=== PATIENT | female | born 1980 | race Caucasian/White ===

== ENCOUNTER 2017-01-15 20:25 | Emergency (ER) | payer OTHER ==
--- NOTE | ~2017-01-15 | CR206 ---
[facility] A Service of [facility] & [facility] RADIOLOGY TEXT RESULTS PATIENT: GULSHAN MELARA LOCATION: CFTX : 76 UNIT #: [id number] AGE: [address]: SHAJI LOZOYA APRN SEX: F ORDER DR: [id number] [facility] [address] [place], [place] [address] [id number] E MR#: [id number] Acc #: [id number] NAME: GULSHAN MELARA. : 1980 SEX: F STUDY DATE/TIME: 01/15/2017 20:54 UNIT: [facility] ROOM: STUDY DESCRIPTION: CR Pelvis 1 or 2 Views Attending Physician: Shaji Lozoya Aprn Ordering Physician: Shaji Lozoya Aprn Primary Care Physician: Hillary Ochoa M.D. MEDICAL IMAGING REPORT This report is preliminary unless electronic signature is present EXAM AP pelvis HISTORY Chronic low back pain, pelvic pain FINDINGS AP view of the pelvis demonstrates no fracture or deformity. Bone mineralization appears normal. Soft tissues in lower lumbar spine and SI joints appear normal. There are pelvic clips compatible with tubal ligation. IMPRESSION Normal AP pelvis. Dictated by... Daniel Antony M.D. THIS IS AN ELECTRONICALLY VERIFIED REPORT Daniel Antony M.D. at 01/16/2017 5:04 PM Oumar TD: 01/16/2017 08:28 JOB #: [id number] MEDICAL IMAGING REPORT COPY
--- NOTE | ~2017-01-15 | CR181 ---
[facility] A Service of [facility] & [facility] RADIOLOGY TEXT RESULTS PATIENT: GULSHAN MELARA LOCATION: CFTX : 76 UNIT #: [id number] AGE: [address]: SHAJI LOZOYA APRN SEX: F ORDER DR: [id number] [facility] [address] [place], [place] [address] [id number] E MR#: [id number] Acc #: [id number] NAME: GULSHAN MELARA. : 1980 SEX: F STUDY DATE/TIME: 01/15/2017 20:55 UNIT: [facility] ROOM: STUDY DESCRIPTION: CR Lumbar Spine 2 or 3 Views Attending Physician: Shaji Lozoya Aprn Ordering Physician: Shaji Lozoya Aprn Primary Care Physician: Hillary Ochoa M.D. MEDICAL IMAGING REPORT This report is preliminary unless electronic signature is present EXAM Lumbar spine 3 views HISTORY Chronic low back pain. No injury. FINDINGS 3 views lumbar spine demonstrate satisfactory lumbar alignment. Moderately severe disc space narrowing at L5-S1. No lumbar fracture or subluxation. Mild gaseous distension of the partly visualized colon could reflect mild colonic ileus. Surgical clips in the right upper quadrant. IMPRESSION 1. No acute findings in the lumbar spine. Moderately severe disc space narrowing at L5-S1. 2. Mild gaseous distension of the partly visualized colon suggesting mild colonic ileus. Dictated by... Rey Carney M.D. THIS IS AN ELECTRONICALLY VERIFIED REPORT Rey Carney M.D. at 01/16/2017 3:16 PM DFL/tianna TD: 01/16/2017 08:31 JOB #: [id number] MEDICAL IMAGING REPORT COPY
[~2017-01-15 20:25] MED LIST: LORTAB 10-3251 EACH PO; NEURONTIN800 MG PO; NO MEDICATIONS; PROTONIX PO; PROZAC40 MG PO
== END 2017-01-15 22:05 | disposition home or self-care (01) ==
LOC: CFTX 20:25
DX: M54.41 Lumbago with sciatica, right side (principal); Z86.73 Personal history of transient ischemic attack (TIA), and cerebral infarction without residual deficits; F32.9 Major depressive disorder, single episode, unspecified; F41.9 Anxiety disorder, unspecified; F17.210 Nicotine dependence, cigarettes, uncomplicated; Z90.49 Acquired absence of other specified parts of digestive tract
CPT/HCPCS: 72100; 72170; 84703; 96372; 99284; J1885

== ENCOUNTER 2017-02-07 21:47 | Emergency (ER) | payer OTHER ==
--- NOTE | ~2017-02-07 | EKG ---
PATIENT: GULSHAN MELARA UNIT #: [id number] Ventricular Rate: 48 BPM Atrial Rate: 48 BPM P-R Interval: 116 ms QRS Duration: 84 ms Q-T Interval: 466 ms QTC Calculation(Bezet): 416 ms P [place]: 32 degrees Calculated R [place]: 63 degrees Calculated T [place]: 66 degrees Diagnosis Line: Sinus bradycardia Diagnosis Line: Otherwise normal ECG Diagnosis Line: When compared with ECG of 02-AUG-2016 07:13, Diagnosis Line: Vent. rate has decreased BY 28 BPM Diagnosis Line: QT has shortened Diagnosis Line: Confirmed by RAMON PARIS MD ([id number]) on 02/09/2017 Diagnosis Line: 9:17:54 AM INTERPRETING MD: WELLINGTON OLIVEIRA
[2017-02-07 22:12] LABS: ARTERIAL BLD GAS O2 SATURATION 96.4 % (90.0-100.0); ARTERIAL BLOOD GAS CARBOXY HB 1.3 %sat (0.0-9.0); ARTERIAL BLOOD GAS HCO3 26.4 mmol/L; ARTERIAL BLOOD GAS MET HB 0.7 %sat (0.0-2.0); ARTERIAL BLOOD GAS PCO2 40.3 mmHg (35.0-45.0); ARTERIAL BLOOD GAS pH 7.424 (7.350-7.450)
[2017-02-07 22:13] LABS: ARTERIAL BLOOD GAS ALLEN TEST NORMAL; ARTERIAL BLOOD GAS ART SITE LEFT RADIAL; ARTERIAL BLOOD GAS DELIVERY ROOM AIR; ARTERIAL DRAW? YES
[2017-02-07 23:25] LABS: URINE SOURCE CLEAN CATCH
[2017-02-07 23:29] LABS: URINE APPEARANCE CLEAR; URINE BILIRUBIN NEG (NEG); URINE BLOOD NEG (NEG); URINE COLOR YELLOW; URINE GLUCOSE NEG (NEG); URINE KETONE NEG (NEG); URINE LEUKOCYTE ESTERASE NEG (NEG); URINE NITRATE NEG (NEG); URINE PROTEIN NEG (NEG); URINE UROBILINOGEN 0.2 MG/DL (NEG)
[2017-02-07 23:34] LABS: CULTURE INDICATED? NO
[2017-02-07 23:39] LABS: AMPHETAMINE NEG (NEG); BARBITURATES NEG (NEG); BENZODIAZEPINES NEG (NEG); COCAINE NEG (NEG); MARIJUANA NEG (NEG); OPIATES NEG (NEG); TRICYCLIC ANTIDEPRESSANTS NEG (NEG); U METHADONE NEG (NEG)
[2017-02-08 01:16] LABS: BASOPHIL# 0.1 X10e3 (0-0.3); BASOPHIL% 0.8 % (0-2.5); EOSINOPHIL% 0.1 % (0.0-7.0); HEMATOCRIT 38.5 % (35.0-45.0); HEMOGLOBIN 12.4 gm/dL (12.0-16.0); LYMPHOCYTE# 2.3 X10e3 (1.0-3.5); LYMPHOCYTE% 26.6 % (17.0-45.0); MEAN CELL VOLUME 85.8 FL (83-96); MEAN CORPUSCULAR HEMOGLOBIN 27.7 PG (28-34); MEAN CORPUSCULAR HGB CONC 32.2 g/dL (30-36); MEAN PLATELET VOLUME 9.5 FL (6.5-11.5); MONOCYTE# 0.6 X10e3 (0-1.0); MONOCYTE% 7.3 % (3.0-12.0); NEUTROPHIL# 5.7 X10e3 (1.5-7.1); NEUTROPHIL% 65.2 % (40-75); PLATELET COUNT 217 X10e3 (140-420); RED BLOOD COUNT 4.49 X10e (3.90-5.30); WHITE BLOOD COUNT 8.8 X10e3 (4.0-10.5)
[2017-02-08 01:17] LABS: DIFF IND NO
[2017-02-08 01:40] LABS: ACETAMINOPHEN <10 ug/mL; ALBUMIN SERUM 3.5 g/dL (3.5-5.0); ALCOHOL BLOOD <5 mg/dL (0); ALKALINE PHOSPHATASE 77 U/L (32-92); ALT (SGPT) 81 U/L (10-40); AST (SGOT) 62 U/L (10-42); BILIRUBIN, DIRECT 0.1 mg/dL (0.0-0.2); BILIRUBIN,INDIRECT 0.3 mg/dL (0.0-0.9); BILIRUBIN,TOTAL 0.4 mg/dL (0.2-2.0); BLOOD UREA NITROGEN 11 mg/dL (9-23); BUN/CREATININE RATIO 15.71; CALCIUM SERUM 8.6 mg/dL (8.4-10.2); CARBON DIOXIDE 28 mmol/L (22-31); CHLORIDE 109 mmol/L (100-111); CREATININE SERUM 0.7 mg/dL (0.6-1.4); GLOM FILT RATE Estimated ABOVE60 mL/min (>60); GLUCOSE FASTING 100 mg/dL (70-110); POTASSIUM 3.9 mmol/L (3.5-5.1); PROTEIN TOTAL SERUM 6.5 g/dL (6.0-8.3); SALICYLATE <4.0 mg/dL; SODIUM 143 mmol/L (135-145)
== END 2017-02-08 04:45 | disposition home or self-care (01) ==
LOC: CFTX 21:47
PROVIDERS: Emergency Medicine
DX: T42.8X1A Poisoning by antiparkinsonism drugs and other central muscle-tone depressants, accidental (unintentional), initial encounter (principal); F32.9 Major depressive disorder, single episode, unspecified; F17.210 Nicotine dependence, cigarettes, uncomplicated
CPT/HCPCS: 36415; 36600; 80048; 80076; 80307; 81003; 82803; 84703; 85025; 93005; 99283; G0480